=== PATIENT | female | born 1980 | race Caucasian/White ===

== ENCOUNTER 2024-12-26 19:42 | Emergency (ER) | payer MEDICAID, OTHER | END 2024-12-26 21:55 | disposition left against medical advice (07) | LOC: JP.ED 19:42 | DX: Z53.21 Procedure and treatment not carried out due to patient leaving prior to being seen by health care provider (principal) ==

== ENCOUNTER 2025-04-22 07:54 | Day surgery (SDC) | payer OTHER ==
[2025-04-22] MEDS ORDERED: fentaNYL 50 MCG/ML SDV ONE (08:22)
[2025-04-22] MEDS ORDERED: Midazolam 1 MG/ML 2 ML SDV ONE (08:22)
[2025-04-22] MEDS ORDERED: Propofol 200 MG/20 ML SDV ONE ×2 (08:22→09:49)
[2025-04-22] MEDS: Lactated Ringers 1,000 ML IV SCH (08:49)
== END 2025-04-22 11:14 | disposition home or self-care (01) ==
LOC: JP.SDS 07:54
PROVIDERS: ATTEND Surgery
DX: Z12.11 Encounter for screening for malignant neoplasm of colon (principal); Z80.0 Family history of malignant neoplasm of digestive organs; Z79.899 Other long term (current) drug therapy
CPT/HCPCS: J2250; J2704; J3010; J7120